=== PATIENT | female | born 1945 | race Caucasian/White ===

== ENCOUNTER → 2016-11-02 | Outpatient (CLI) | payer MEDICARE, BC ==
[~2016-11-02] MED LIST: ASPI81TA45 PO; ATEN-100 PO; CALTTAB PO; COEN1CAP4 PO; ETOD200 PO; META48.53 PO; PROT40TA PO; TAB-TAB PO; TURM450C PO; VITA-83 PO; VITATAB11 PO; [UNRECOGNIZED DRUG - CODE] PO
[2016-11-02 09:31] LABS: HEMATOCRIT 36.4 % (35.0-46.0); MEAN CELL VOLUME 85.2 FL (80.0-100.0); MEAN CORPUSCULAR HGB CONC 32.9 % (32.0-36.0); PLATELET COUNT 271 TH/MM3 (150-450); RED BLOOD COUNT 4.28 MIL/MM3 (4.00-5.30); RED CELL DISTRIBUTION WIDTH 13.3 % (11.6-17.2); REVIEW FLAG FINAL; WHITE BLOOD COUNT 4.9 TH/MM3 (4.0-11.0)
[2016-11-02 10:20] LABS: ALKALINE PHOSPHATASE 86 U/L (45-117); ALT (GPT) 30 U/L (10-53); ANION GAP 4 MEQ/L (5-15); AST (GOT) 50 U/L (15-37); BICARBONATE 30.4 MEQ/L (21.0-32.0); BLOOD UREA NITROGEN 9 MG/DL (7-18); CHLORIDE 108 MEQ/L (98-107); GLOMERULAR FILTRATION RATE 71 ML/MIN (>89); GLUCOSE,FASTING 84 MG/DL (74-99); HDL CHOLESTEROL 37.9 MG/DL (40.0-60.0); LDL CHOLESTEROL 99 MG/DL (0-99); POTASSIUM 4.1 MEQ/L (3.5-5.1); SODIUM (NA) 142 MEQ/L (136-145); TOTAL BILIRUBIN ADULT 0.3 MG/DL (0.2-1.0)
== END ==
LOC: PLAB 07:37
PROVIDERS: ATTEND Internal Medicine Interventional Cardiology
DX: R00.2 Palpitations (principal); I47.1 Supraventricular tachycardia; E78.00 Pure hypercholesterolemia, unspecified
CPT/HCPCS: 36415; 80053; 80061; 85027

== ENCOUNTER → 2017-07-01 | Outpatient (CLI) | payer MEDICARE, BC ==
[2017-07-01 10:01] LABS: HEMATOCRIT 37.8 % (35.0-46.0); MEAN CELL VOLUME 86.3 FL (80.0-100.0); MEAN CORPUSCULAR HEMOGLOBIN 28.2 PG (27.0-34.0); MEAN CORPUSCULAR HGB CONC 32.7 % (32.0-36.0); PLATELET COUNT 281 TH/MM3 (150-450); RED BLOOD COUNT 4.38 MIL/MM3 (4.00-5.30); RED CELL DISTRIBUTION WIDTH 13.6 % (11.6-17.2); REVIEW FLAG FINAL; WHITE BLOOD COUNT 4.9 TH/MM3 (4.0-11.0)
[2017-07-01 10:23] LABS: ANION GAP 6 MEQ/L (5-15); AST (GOT) 60 U/L (15-37); BICARBONATE 27.6 MEQ/L (21.0-32.0); BLOOD UREA NITROGEN 10 MG/DL (7-18); CHLORIDE 106 MEQ/L (98-107); GLOMERULAR FILTRATION RATE 79 ML/MIN (>89); POTASSIUM 4.8 MEQ/L (3.5-5.1); SODIUM (NA) 140 MEQ/L (136-145)
[2017-07-01 10:25] LABS: ALT (GPT) 40 U/L (10-53)
[2017-07-01 10:34] LABS: ALKALINE PHOSPHATASE 104 U/L (45-117); TOTAL BILIRUBIN ADULT 0.3 MG/DL (0.2-1.0)
== END ==
LOC: PLAB 07:43
PROVIDERS: ATTEND Internal Medicine Interventional Cardiology
DX: R00.2 Palpitations (principal); I47.1 Supraventricular tachycardia; R53.81 Other malaise
CPT/HCPCS: 36415; 80053; 84443; 85027

== ENCOUNTER 2017-07-14 03:04 | Emergency (ER) | payer MEDICARE, BC ==
[~2017-07-14] VITALS: Ht 165.1 cm; Wt 66.0 kg
[2017-07-14 03:20] VITALS: BP 130/70; PULSE 95; RESP 14; RESP 16; TEMP 97.9; O2SAT 100
[2017-07-14] MEDS ORDERED: SODIUM CHLORIDE 0.9% FLUSH 10 ML FLUSH IVF PRN (03:30)
[2017-07-14 03:50] LABS: AUTOMATED NEUTROPHIL # 5.1 TH/MM3 (1.8-7.7); BASOPHIL % 0.4 % (0.0-2.0); HEMATOCRIT 38.1 % (35.0-46.0); HEMOGLOBIN 12.7 GM/DL (11.6-15.3); LYMPH % 16.4 % (9.0-44.0); MEAN CELL VOLUME 85.2 FL (80.0-100.0); MEAN CORPUSCULAR HEMOGLOBIN 28.4 PG (27.0-34.0); MEAN CORPUSCULAR HGB CONC 33.3 % (32.0-36.0); MEAN PLATELET VOLUME 7.7 FL (7.0-11.0); MONO % 1.5 % (0.0-8.0); MONOCYTE # 0.1 TH/MM3 (0-0.9); NEUT % 81.7 % (16.0-70.0); PLATELET COUNT 358 TH/MM3 (150-450); RED BLOOD COUNT 4.47 MIL/MM3 (4.00-5.30); RED CELL DISTRIBUTION WIDTH 13.1 % (11.6-17.2); WHITE BLOOD COUNT 6.2 TH/MM3 (4.0-11.0)
[2017-07-14 04:00] LABS: CHLORIDE 100 MEQ/L (98-107); SODIUM (NA) 134 MEQ/L (136-145)
[2017-07-14 04:03] LABS: ALBUMIN 3.5 GM/DL (3.4-5.0); CALCIUM 8.7 MG/DL (8.5-10.1)
[2017-07-14 04:04] LABS: BICARBONATE 24.9 MEQ/L (21.0-32.0); BLOOD UREA NITROGEN 13 MG/DL (7-18); GLUCOSE,RANDOM 173 MG/DL (74-106); MAGNESIUM 1.8 MG/DL (1.5-2.5)
[2017-07-14 04:06] LABS: INTERNATIONAL NORMALIZED RATIO 0.9 RATIO; PROTHROMBIN TIME - PATIENT 10.2 SEC (9.8-11.6)
[2017-07-14 04:07] LABS: ALT (GPT) 68 U/L (10-53); AST (GOT) 100 U/L (15-37); CREATININE 0.84 MG/DL (0.50-1.00); GLOMERULAR FILTRATION RATE 67 ML/MIN (>89)
[2017-07-14 04:08] LABS: TOTAL BILIRUBIN ADULT 0.3 MG/DL (0.2-1.0); TOTAL PROTEIN 6.6 GM/DL (6.4-8.2)
[2017-07-14 04:09] LABS: ALKALINE PHOSPHATASE 100 U/L (45-117)
[2017-07-14 04:12] LABS: TROPONIN I 0.02 NG/ML (0.02-0.05)
[2017-07-14] MEDS ORDERED: ATEN25TA PO (04:31)
[2017-07-14] MEDS ORDERED: ETOD400T PO (04:31)
[2017-07-14] MEDS ORDERED: PANT40TA3 PO (04:31)
[2017-07-14] MEDS ORDERED: ASPI81CH37 CHEW (04:31)
[2017-07-14] MEDS ORDERED: TURM500C3 PO (04:31)
[2017-07-14] MEDS ORDERED: META48.53 PO (04:31)
[2017-07-14] MEDS ORDERED: OMEGCAP PO (04:31)
[2017-07-14] MEDS ORDERED: COEN1CAP PO (04:31)
[2017-07-14] MEDS ORDERED: MULTTAB67 PO (04:31)
[2017-07-14] MEDS ORDERED: VITA500T83 PO (04:31)
[2017-07-14] MEDS ORDERED: VITATAB11 PO (04:31)
[2017-07-14] MEDS ORDERED: CALTCHW5 PO (04:31)
--- NOTE | 2017-07-14 04:37 | PD ---
HPI Chief Complaint: Cardiac Complaint Time Seen by Provider: 03:21 Travel History International Travel<30 days: No Contact w/Intl Traveler<30days: No Traveled to known affect area: No History of Present Illness HPI 71-year-old female with history of SVT, here for evaluation of palpitations and rapid heart rate. The patient reports that she believes that caffeine was the trigger for this episode this evening. She states that has been going on for 5 hours and she has tried vagal maneuvers such as ice to her neck without improvement. She did have some chest tightness a few hours ago, however does not have any tenderness currently. She is followed by railroad maintenance clerk Dr. Ga. Upon arrival to the emergency department to radial pulse appears to be in the normal rate. She was placed on the monitor and her rate was in the 90s. She was asymptomatic at this time. She denies fevers, chills, cough, or recent illness. PFSH Past Medical History Arthritis: Yes Heart Rhythm Problems: Yes (SVT) Cancer: Yes (SKIN) Cardiovascular Problems: Yes (HX SVT) Diabetes: No Diminished Hearing: No Endocrine: No GERD: Yes Genitourinary: No Hepatitis: No Hiatal Hernia: No Hypertension: No Immune Disorder: No Medical other: Yes (FOLICULAR LYMPHOMA) Musculoskeletal: Yes (ARTHRITIS, OSTEOPENIA) Neurologic: No Psychiatric: No Reproductive: Yes (LICHEN SCLEROSIS (VAGINAL THICKENING)) Respiratory: No Thyroid Disease: No Tetanus Vaccination: < 5 Years Influenza Vaccination: Yes ?: Not : 2 Para: 2 Past Surgical History AICD: No Eye Surgery: Yes (CATARACT R EYE 2012) Gynecologic Surgery: Yes (HYSTERECTOMY) Hysterectomy: Yes Joint Replacement: No Oral Surgery: Yes (TONSILLECTOMY) Pacemaker: No Tonsillectomy: Yes Other Surgery: Yes (R BREAST LUMPECTOMY) Social History Alcohol Use: Yes (WINE OCC) Tobacco Use: No Substance Use: No Allergies-Medications (Allergen,Severity, Reaction): Coded Allergies: latex (Unverified Allergy, Mild, RASH, 05/04/17) 05/04/16 DENIES ALLERGY (REACTS TO BANDAIDS) Reported Meds & Prescriptions Reported Meds & Active Scripts Active Reported Metamucil Original Texture (Psyllium Hydrophilic Mucilloid) 3.4 Gram/7 Gram Pow 1 Scoop PO DAILY 1 rounded TEASPOON in 8 oz of liquid at the first sign of irregularity. [place]-3 Fish Oil/Vitamin (Fish Oil-Cholecalciferol) 1,000-1,000 Mg Cap 1 Cap PO DAILY Multiple Vitamin 1 Tab 1 Tab PO DAILY Etodolac 400 Mg Tab 400 Mg PO BID Take with food. Co Q-10 (Coenzyme Q10 (Ubidecarenone)) 100 Mg Cap 100 Mg PO DAILY Caltrate 600+D Chew (Calcium Carbonate-Vitamin D Chew) 600-400 Mg-Unit Chew 1 Tab PO BID Vitamin C ER (Ascorbic Acid) 500 Mg Fuad 500 Mg PO BID Vitamin B Complex (B-Complex Vitamins) 1 Tab 1 Tab PO DAILY Atenolol 25 Mg Tab 25 Mg PO DAILY PRN Pantoprazole (Pantoprazole Sodium) 40 Mg Tab 40 Mg PO DAILY Turmeric (Turmeric (Curcuma Longa)) 450 Mg-50 Mg Cap 1 Can PO DAILY Aspirin Low Dose (Aspirin) 81 Mg Chew 81 Mg CHEW DAILY Review of Systems Except as stated in HPI: all other systems reviewed are Neg Physical Exam Narrative GENERAL: Well-developed, well-nourished, comfortable, no apparent distress. SKIN: Focused skin assessment warm/dry. HEAD: Atraumatic. Normocephalic. EYES: Pupils equal and round. No scleral icterus. No injection or drainage. ENT: Mucous membranes pink and moist. NECK: Trachea midline. No JVD. CARDIOVASCULAR: Regular rate and rhythm. RESPIRATORY: No accessory muscle use. Clear to auscultation. Breath sounds equal bilaterally. GASTROINTESTINAL: Abdomen soft, non-tender, nondistended. MUSCULOSKELETAL: No obvious deformities. No clubbing. No cyanosis. No edema. NEUROLOGICAL: Awake and alert. No obvious cranial nerve deficits. Motor grossly within normal limits. Normal speech. PSYCHIATRIC: Appropriate mood and affect; insight and judgment normal. Data Data Last Documented VS Vital Signs Date Time Temp Pulse Resp B/P (MAP) Pulse Ox O2 Delivery O2 Flow Rate FiO2 07/14/17 03:20 16 100 Room Air 07/14/17 03:20 97.9 95 130/70 (90) Orders Orders Electrocardiogram (07/14/17 03:22) Ckmb (Isoenzyme) Profile (07/14/17 03:22) Complete Blood Count With Diff (07/14/17 03:22) Comprehensive Metabolic Panel (07/14/17 03:22) Magnesium (Mg) (07/14/17 03:22) Prothrombin Time / Inr (Pt) (07/14/17 03:22) Act Partial Throm Time (Ptt) (07/14/17 03:22) Troponin I (07/14/17 03:22) Ecg Monitoring (07/14/17 03:22) Iv Access Insert/Monitor (07/14/17 03:22) Oximetry (07/14/17 03:22) Sodium Chloride 0.9% Flush (Ns Flush) (07/14/17 03:30) CKMB (07/14/17 03:25) CKMB% (07/14/17 03:25) Labs Laboratory Tests Test 07/14/17 03:25 White Blood Count 6.2 TH/MM3 Red Blood Count 4.47 MIL/MM3 Hemoglobin 12.7 GM/DL Hematocrit 38.1 % Mean Corpuscular Volume 85.2 FL Mean Corpuscular Hemoglobin 28.4 PG Mean Corpuscular Hemoglobin Concent 33.3 % Red Cell Distribution Width 13.1 % Platelet Count 358 TH/MM3 Mean Platelet Volume 7.7 FL Neutrophils (%) (Auto) 81.7 % Lymphocytes (%) (Auto) 16.4 % Monocytes (%) (Auto) 1.5 % Eosinophils (%) (Auto) 0.0 % Basophils (%) (Auto) 0.4 % Neutrophils # (Auto) 5.1 TH/MM3 Lymphocytes # (Auto) 1.0 TH/MM3 Monocytes # (Auto) 0.1 TH/MM3 Eosinophils # (Auto) 0.0 TH/MM3 Basophils # (Auto) 0.0 TH/MM3 CBC Comment DIFF FINAL Differential Comment Prothrombin Time 10.2 SEC Prothromb Time International Ratio 0.9 RATIO Activated Partial Thromboplast Time 29.2 SEC Blood Urea Nitrogen 13 MG/DL Creatinine 0.84 MG/DL Random Glucose 173 MG/DL Total Protein 6.6 GM/DL Albumin 3.5 GM/DL Calcium Level 8.7 MG/DL Magnesium Level 1.8 MG/DL Alkaline Phosphatase 100 U/L Aspartate Amino Transf (AST/SGOT) 100 U/L Alanine Aminotransferase (ALT/SGPT) 68 U/L Total Bilirubin 0.3 MG/DL Sodium Level 134 MEQ/L Potassium Level 4.2 MEQ/L Chloride Level 100 MEQ/L Carbon Dioxide Level 24.9 MEQ/L Anion Gap 9 MEQ/L Estimat Glomerular Filtration Rate 67 ML/MIN Total Creatine Kinase 118 U/L Creatine Kinase MB 2.6 NG/ML Troponin I 0.02 NG/ML MDM Medical Decision Making Medical Screen Exam Complete: Yes Emergency Medical Condition: Yes Medical Record Reviewed: Yes Interpretation(s) EKG: Sinus, rate 94, occasional supraventricular premature complexes, nonspecific T wave abnormality, no ST segment abnormality, essentially unchanged from prior. Differential Diagnosis SVT, sinus tachycardia, ACS, metabolic abnormality/electrolyte abnormality Narrative Course Initial vital signs show heart rate 95, blood pressure 130/70, pulse ox 100% on room air, oral temp of 97.9F. CBC is essentially unremarkable. CMP is remarkable for AST 100, ALT 68. Patient reports history of slightly elevated LFTs. Random glucose is 173. Troponin is 0.02. Patient was observed in the emergency department for over an hour and had no tachycardic events on the monitor. She remained in sinus rhythm with a normal rate here. She states she is feeling well and would like to be discharged home. She has an appointment with her railroad maintenance clerk Dr. Ga on Wednesday. I told her to keep this appointment. She likely had an episode of SVT. She is stable for discharge home with further workup as an outpatient. She was informed on when to return to the emergency department. She verbalizes understanding and agreement with plan. Diagnosis Primary Impression: Palpitations Referrals: Diego Cook MD 1 week Additional Instructions: Follow-up with your railroad maintenance clerk on Wednesday as scheduled. Return to the emergency department for worsening symptoms or any other concerns. Disposition: DISCHARGE HOME Condition: Stable Donny Brewster MD Jul 14, 2017 04:37
[2017-07-14 04:49] VITALS: BP 116/67
--- NOTE | 2017-07-14 21:19 | EKG ---
Date Performed: 07/14/2017 Time Performed: 03:22:27 PTAGE: 71 years EKG: Sinus rhythm WITH OCCASIONAL SUPRAVENTRICULAR PREMATURE COMPLEXES POSSIBLE LEFT ATRIAL ENLARGEMENT POSSIBLE RIGHT VENTRICULAR CONDUCTION DELAY NONSPECIFIC T-WAVE ABNORMALITY PREVIOUS TRACING : 05/04/2016 10.28 Compared to prior tracing no significant change DOCTOR: Doug Llamas Interpretating Date/Time 07/14/2017 21:18:37
== END 2017-07-14 04:54 | disposition home or self-care (01) ==
LOC: PHED 03:04
DX: R00.2 Palpitations (principal); R94.31 Abnormal electrocardiogram [ECG] [EKG]; Z79.01 Long term (current) use of anticoagulants
CPT/HCPCS: 80053; 82550; 82552; 83735; 84484; 85025; 85610; 85730; 93005; 99284

== ENCOUNTER → 2017-11-12 | Outpatient (CLI) | payer MEDICARE, BC ==
[~2017-11-12] MED LIST changes: +ASPI81CH6 CHEW; -ASPI81TA45 PO; -ATEN-100 PO; +ATEN25TA PO; +CALTCHW5 PO; -CALTTAB PO; +CARD180C5 PO; +COEN1CAP PO; -COEN1CAP4 PO; -ETOD200 PO; +ETOD400T PO; +LECI12002 PO; +LORA24TA PO; +MULTTAB67 PO; +OMEGCAP PO; +PANT40TA3 PO; -PROT40TA PO; -TAB-TAB PO; -TURM450C PO; +TURM500C3 PO; -VITA-83 PO; +VITA500T83 PO; -[UNRECOGNIZED DRUG - CODE] PO; +curamin P-ARTICULR
[2017-11-12 13:21] LABS: HEMATOCRIT 37.4 % (35.0-46.0); HEMOGLOBIN 12.5 GM/DL (11.6-15.3); MEAN CELL VOLUME 85.5 FL (80.0-100.0); MEAN CORPUSCULAR HEMOGLOBIN 28.5 PG (27.0-34.0); MEAN CORPUSCULAR HGB CONC 33.3 % (32.0-36.0); MEAN PLATELET VOLUME 7.7 FL (7.0-11.0); PLATELET COUNT 301 TH/MM3 (150-450); RED BLOOD COUNT 4.38 MIL/MM3 (4.00-5.30); RED CELL DISTRIBUTION WIDTH 13.5 % (11.6-17.2); WHITE BLOOD COUNT 4.9 TH/MM3 (4.0-11.0)
[2017-11-12 13:24] LABS: CALCIUM 8.7 MG/DL (8.5-10.1); CREATININE 0.81 MG/DL (0.50-1.00)
== END ==
LOC: PLAB 08:13
PROVIDERS: ATTEND Internal Medicine Interventional Cardiology
DX: I48.0 Paroxysmal atrial fibrillation (principal); Z79.899 Other long term (current) drug therapy; Z01.810 Encounter for preprocedural cardiovascular examination
CPT/HCPCS: 36415; 80048; 85027

== ENCOUNTER 2017-11-15 05:45 | Day surgery (SDC) | payer MEDICARE, BC ==
[~2017-11-15 05:45] MED LIST changes: -CARD180C5 PO; -LECI12002 PO; -LORA24TA PO; -curamin P-ARTICULR
[2017-11-15] MEDS ORDERED: SODIUM CHLOR 0.9% 1000 ML INJ 1,000 ML IV SCH (06:16)
[2017-11-15] MEDS ORDERED: curamin P-ARTICULR (06:26)
[2017-11-15] MEDS ORDERED: LECI12002 PO (06:26)
[2017-11-15] MEDS ORDERED: LORA24TA PO (06:26)
[2017-11-15] MEDS ORDERED: CARD180C5 PO (06:26)
[2017-11-15] MEDS ORDERED: ceFAZolin 2 GM PREMIX 50 ML IV SCH ×2 (06:30)
[2017-11-15] MEDS ORDERED: CHLORHEXIDINE GLUCONATE 2 % 1 PACK (2 CLOTHS) TOPICAL SCH (06:30)
[2017-11-15] MEDS ORDERED: CHLORHEXIDINE GLUCONATE 2 % 1 PACK (2 CLOTHS) TOP SCH (06:30)
[2017-11-15] MEDS ORDERED: MUPIROCIN 2% OINT 1 APPLIC/GM SYR NASAL SCH ×2 (06:30)
[2017-11-15] MEDS ORDERED: POVIDONE IODINE 5% (ANTISEPSIS KIT) 4 APPLICATIONS EACH NARE SCH ×2 (06:30)
[2017-11-15] MEDS ORDERED: NS 1000 ML IV SCH (06:30)
[2017-11-15] MEDS ORDERED: MIDAZOLAM HCL 5 MG/5 ML VIAL ONE (06:33)
--- NOTE | 2017-11-15 16:55 | MP ---
cc: ORLY COOK M.D. DATE OF SURGERY: 11/15/2017. PREOPERATIVE DIAGNOSIS: Paroxysmal supraventricular tachycardia, rule out paroxysmal atrial fibrillation. POSTOPERATIVE DIAGNOSIS: Paroxysmal supraventricular tachycardia, rule out paroxysmal atrial fibrillation. OPERATIVE PROCEDURE PERFORMED: Implantation of a loop recorder. SURGEON: Orly Cook MD. ESTIMATED BLOOD LOSS: None. ANESTHESIA: Intravenous Versed and fentanyl for awake sedation with 1% Xylocaine local. COMPLICATIONS None PROCEDURE TECHNIQUE: The patient was brought to the diagnostic outpatient unit and following informed consent, the area of the left sternum was prepped and draped in the usual sterile manner. Following 15 mL of 1% Xylocaine for local anesthesia over the fourth left intercostal space, a annabella was made and with the use of the implantation device, a loop recorder was inserted in the usual fashion. Following this, the incision was closed using Steri-Strips and sterile pressure dressing. The patient tolerated procedure well. There were no immediate complications. She will be transferred home when ambulatory and stable. DEVICE INFORMATION: A [employer] DM [id number], serial number [id number]. Testing of the device acutely: R-wave amplitude 1.03 mV. Normal function. MD BRIGITTE Aleman/JULIETTE /7:39 AM /4:48 PM
== END 2017-11-15 09:17 | disposition home or self-care (01) ==
LOC: HDOC 05:45 → HDIC 05:45 → HDOC 09:17
PROVIDERS: ATTEND Internal Medicine Interventional Cardiology
DX: I47.1 Supraventricular tachycardia (principal); I70.0 Atherosclerosis of aorta; K21.9 Gastro-esophageal reflux disease without esophagitis; Z85.72 Personal history of non-Hodgkin lymphomas
CPT/HCPCS: 33282; C1764; J2250; J3010

== ENCOUNTER 2017-11-21 18:59 | Emergency (ER) | payer MEDICARE, BC ==
[~2017-11-21] VITALS: Ht 167.6 cm; Wt 65.0 kg
[~2017-11-21 18:59] MED LIST changes: +CARD180C5 PO; +LECI12002 PO; +LORA24TA PO; -TURM500C3 PO; +curamin P-ARTICULR
[2017-11-21 19:08] VITALS: BP 130/63; PULSE 175; RESP 20; TEMP 97.5; O2SAT 100
[2017-11-21] MEDS ORDERED: ADENOSINE IV SOLN 3 MG/ML 2 ML VIAL ONE (19:28)
[2017-11-21 19:30] VITALS: BP 130/77; PULSE 116; RESP 18; O2SAT 100
[2017-11-21 19:59] VITALS: BP 130/70; PULSE 100; RESP 16; O2SAT 99
--- NOTE | 2017-11-21 20:00 | PD ---
HPI Chief Complaint: Cardiac Complaint Time Seen by Provider: 19:18 Travel History International Travel<30 days: No Contact w/Intl Traveler<30days: No Traveled to known affect area: No History of Present Illness HPI The patient is a 72 year old female who presents to the [facility] emergency department with a history of a sensation of palpitations with her heart racing since 2:30 PM. The patient denies having any chest pain, chest pressure, or shortness of breath. She reports having a generalized sensation of her body "throbbing". The patient reports having a prior history of SVT. She reports that the episodes have been more frequent over the last several months since June 2017. She is followed by Dr. Cook for her care. She reports that previously she was on atenolol as needed, however in September she began to take it daily. She also reports that a month ago she had diltiazem added to her regimen which she takes at night. She reports that week ago she did have an internal loop recording device placed. She reports that prior to arrival she tried vagal maneuvers without success to abort the SVT. On arrival the patient is noted to be in SVT with a heart rate of 173. Otherwise on review of systems, the patient denies having any known recent fevers, cough, congestion, neck pain, abdominal pain, vomiting, diarrhea, urinary symptoms, or neurologic symptoms. She denies having any recent weight changes. [facility] Past Medical History Narrative Medical The patient's past medical history is significant for a history of SVT, history of abnormal liver function test, arthritis, follicular lymphoma followed by Dr. Chen, acid reflux, peptic ulcer disease. Arthritis: Yes Heart Rhythm Problems: Yes (SVT) Cancer: Yes (SKIN) Cardiovascular Problems: Yes (SVT) Diabetes: No Diminished Hearing: No Endocrine: No GERD: Yes Genitourinary: No Hepatitis: No Hiatal Hernia: No Hypertension: No Immune Disorder: No Musculoskeletal: Yes (ARTHRITIS, OSTEOPENIA) Neurologic: No Psychiatric: No Reproductive: Yes (LICHEN SCLEROSIS (VAGINAL THICKENING)) Respiratory: No Thyroid Disease: No : 2 Para: 2 Past Surgical History Narrative Surgical The patient's past surgical history is significant for basal cell skin cancer resection, right knee surgery for torn meniscus, tonsillectomy, cataract surgery , hysterectomy, right breast biopsy, biopsy of lymphadenopathy related to follicular lymphoma. AICD: No Eye Surgery: Yes (CATARACT BILAT EYE 2012) Gynecologic Surgery: Yes (HYSTERECTOMY) Hysterectomy: Yes Joint Replacement: No Oral Surgery: Yes (TONSILLECTOMY) Pacemaker: No Tonsillectomy: Yes Other Surgery: Yes (SKIN CANCER REMOVAL MULTIPLT AREAS) Social History Alcohol Use: Yes (WINE OCC) Tobacco Use: No Substance Use: No Allergies-Medications (Allergen,Severity, Reaction): Coded Allergies: latex (Verified Allergy, Mild, RASH, 11/21/17) 05/04/16 DENIES ALLERGY (REACTS TO BANDAIDS) Reported Meds & Prescriptions Reported Meds & Active Scripts Active Reported [curamin] 2 Tab P-ARTICULR DAILY Lecithin (Lecithin, Soy) 1,200 Mg Capsule 1,200 Mg PO DAILY Loratadine-D 24 HR (Loratadine-Pseudoephedrine 24 HR) 10-240 Mg Tab 1 Tab PO DAILY Cardizem CD 24 HR (Diltiazem CD 24 HR) 180 Mg Caper 180 Mg PO DAILY Metamucil Original Texture (Psyllium Hydrophilic Mucilloid) 3.4 Gram/7 Gram Pow 1 Scoop PO DAILY 1 rounded TEASPOON in 8 oz of liquid at the first sign of irregularity. [place]-3 Fish Oil/Vitamin (Fish Oil-Cholecalciferol) 1,000-1,000 Mg Cap 1 Cap PO DAILY Multiple Vitamin 1 Tab 1 Tab PO DAILY Etodolac 400 Mg Tab 400 Mg PO BID Take with food. Co Q-10 (Coenzyme Q10 (Ubidecarenone)) 100 Mg Cap 100 Mg PO DAILY Caltrate 600+D Chew (Calcium Carbonate-Vitamin D Chew) 600-400 Mg-Unit Chew 1 Tab PO BID Vitamin C ER (Ascorbic Acid) 500 Mg Fuad 500 Mg PO BID Vitamin B Complex (B-Complex Vitamins) 1 Tab 1 Tab PO DAILY Atenolol 25 Mg Tab 25 Mg PO DAILY PRN Pantoprazole (Pantoprazole Sodium) 40 Mg Tab 40 Mg PO DAILY Aspirin Low Dose (Aspirin) 81 Mg Chew 81 Mg CHEW DAILY Review of Systems Except as stated in HPI: all other systems reviewed are Neg General / Constitutional: No: Fever Eyes: No: Visual changes HENT: No: Headaches Cardiovascular: No: Chest Pain or Discomfort Respiratory: No: Shortness of Breath Gastrointestinal: No: Abdominal Pain Genitourinary: No: Dysuria Musculoskeletal: No: Pain Skin: No Rash Neurologic: No: Weakness Psychiatric: No: Depression Endocrine: No: Polydipsia Hematologic/Lymphatic: No: Easy Bruising Physical Exam Narrative General: The patient is a well-developed well-nourished female in no acute distress. Head and Neck exam: Head is normocephalic atraumatic. Eyes: EOMI, pupils are equal round and reactive to light. Nose: Midline septum with pink mucous membranes Mouth: Dentition unremarkable. Moist mucus membranes. Posterior oropharynx is not erythematous. No tonsillar hypertrophy. Uvula midline. Airway patent. Neck: No palpable lymphadenopathy. No nuchal rigidity. No thyromegaly. Cardiovascular: Tachycardic regular sounding rhythm noted to be in the 170s when placed on telemetry without murmurs, gallops, or rubs. No pulse deficit to the extremities on simultaneous auscultation and palpation of her radial artery. Lungs: Clear to auscultation bilaterally. No wheezes, rhonchi, or rales. Abdomen: Soft, without tenderness to palpation in all 4 quadrants of the abdomen. No guarding, rebound, or rigidity. Normal bowel sounds are audible. No tenderness on palpation of McBurney's point Extremities: No clubbing, cyanosis, or edema. 2+ pulses in all 4 extremities. No calf tenderness on palpation peer Back: No costovertebral angle tenderness to palpation. Neurologic Exam: Grossly nonfocal. Skin Exam: No rash noted. Intact skin that is warm and dry. Data Data Last Documented VS Vital Signs Date Time Temp Pulse Resp B/P (MAP) Pulse Ox O2 Delivery O2 Flow Rate FiO2 11/21/17 19:59 100 16 130/70 (90) 99 Nasal Cannula 2.00 11/21/17 19:08 97.5 Orders Orders Electrocardiogram (11/21/17 19:16) Ecg Monitoring (11/21/17 19:16) Oxygen Administration (11/21/17 19:16) Oximetry (11/21/17 19:16) Electrocardiogram (11/21/17 19:24) Complete Blood Count With Diff (11/21/17 19:24) Comprehensive Metabolic Panel (11/21/17 19:24) Creatine Kinase (Cpk) (11/21/17 19:24) Ckmb (Isoenzyme) Profile (11/21/17 19:24) Troponin I (11/21/17 19:24) B-Type Natriuretic Peptide (11/21/17:24) Prothrombin Time / Inr (Pt) (11/21/17:24) Act Partial Throm Time (Ptt) (11/21/17:24) Lipase (11/21/17:24) Magnesium (Mg) (11/21/17:24) Thyroid Stimulating Hormone (11/21/17:24) Chest, Single Ap (11/21/17:24) Iv Access Insert/Monitor (11/21/17:24) Adenosine Inj (Adenocard Inj) (11/21/17 19:28) CKMB (11/21/17:35) CKMB% (11/21/17:35) Labs Laboratory Tests Test 11/21/17:35 White Blood Count 9.0 TH/MM3 Red Blood Count 4.67 MIL/MM3 Hemoglobin 13.4 GM/DL Hematocrit 39.8 % Mean Corpuscular Volume 85.2 FL Mean Corpuscular Hemoglobin 28.6 PG Mean Corpuscular Hemoglobin Concent 33.6 % Red Cell Distribution Width 13.7 % Platelet Count 347 TH/MM3 Mean Platelet Volume 7.7 FL Neutrophils (%) (Auto) 61.6 % Lymphocytes (%) (Auto) 29.2 % Monocytes (%) (Auto) 7.1 % Eosinophils (%) (Auto) 1.5 % Basophils (%) (Auto) 0.6 % Neutrophils # (Auto) 5.5 TH/MM3 Lymphocytes # (Auto) 2.6 TH/MM3 Monocytes # (Auto) 0.6 TH/MM3 Eosinophils # (Auto) 0.1 TH/MM3 Basophils # (Auto) 0.1 TH/MM3 CBC Comment DIFF FINAL Differential Comment Prothrombin Time 9.8 SEC Prothromb Time International Ratio 1.0 RATIO Activated Partial Thromboplast Time 27.1 SEC Blood Urea Nitrogen 13 MG/DL Creatinine 0.72 MG/DL Random Glucose 97 MG/DL Total Protein 6.2 GM/DL Albumin 3.5 GM/DL Calcium Level 8.1 MG/DL Magnesium Level 1.7 MG/DL Alkaline Phosphatase 94 U/L Aspartate Amino Transf (AST/SGOT) 66 U/L Alanine Aminotransferase (ALT/SGPT) 35 U/L Total Bilirubin 0.2 MG/DL Sodium Level 136 MEQ/L Potassium Level 4.3 MEQ/L Chloride Level 105 MEQ/L Carbon Dioxide Level 23.3 MEQ/L Anion Gap 8 MEQ/L Estimat Glomerular Filtration Rate 80 ML/MIN Total Creatine Kinase 127 U/L Creatine Kinase MB 1.7 NG/ML Troponin I LESS THAN 0.02 NG/ML B-Type Natriuretic Peptide 108 PG/ML Lipase 239 U/L Thyroid Stimulating Hormone 3rd Gen 1.710 uIU/ML MDM Medical Decision Making Medical Screen Exam Complete: Yes Emergency Medical Condition: Yes Medical Record Reviewed: Yes Interpretation(s) Last Impressions Chest X-Ray 11/21/171923 Signed Impressions: Service Date/Time: Tuesday, November 21, 2017 19:40 - CONCLUSION: 1. No active disease. Minimal basilar atelectasis. Rajinder Weldon MD Differential Diagnosis SVT, versus paroxysmal atrial fibrillation, versus multifocal atrial tachycardia Narrative Course During the course of the patient's emergency department visit, the patient's history, examination, and differential diagnosis were reviewed with the patient. The patient was placed on a cardiac technologist with oximetry and frequent blood pressure monitoring. The patient had IV access obtained and blood work sent for analysis. The patient had an EKG done on arrival. The patient's EKG shows a heart rate of 173, supraventricular tachycardia noted, QRS duration is 63 ms, no acute ST segment elevation is noted. T waves are inverted in V1, V2, V3. A vagal maneuver was attempted by the patient where she did bear down under my guidance on telemetry, however this was not successful in aborting the SVT. The patient was initially provided adenosine 6 mg IV rapid push followed by a flush. The patient converted to a sinus rhythm. A second EKG was done that shows sinus tachycardia rate of 101, QRS duration 79 ms, QTC 397 ms with no acute ST segment elevation, T waves are inverted in V1, V2, V3. The patient's laboratory studies were reviewed and remarkable for a CBC that is within normal, CMP is remarkable for a GFR of 80, calcium 8.1, AST 66, cardiac enzymes within normal limits, BNP 108, total protein 6.2, lipase 239, TSH 1.71, PT 9.8, PTT 27.1 Radiology studies were reviewed and remarkable for a chest x-ray that shows no acute abnormality. The patient's geologic technician, Dr. Cook called the emergency department regarding this patient's case. We did discuss the patient's episode of SVT which converted with adenosine and the patient's rhythm strip was able to be transmitted to him for evaluation. He plans to be in contact with the patient regarding possibly adding another medication to her regimen for better control. At this time he felt that the patient was stable for discharge. He reports that she did have a stress test done approximately a month ago that was unremarkable. The patient has maintained herself in sinus rhythm. The patient will be discharged home to follow-up with Dr. Cook's office tomorrow. The patient is resting comfortably and feels better, is alert and in no distress. The patient's results and examination findings were discussed with the patient. The repeat examination is unremarkable and benign. The history, exam, diagnostic testing, and current condition do not suggest any significant pathology to warrant further testing, continued ED treatment, admission, or surgical evaluation at this point. The vital signs have been stable. The patient does not have uncontrollable pain, intractable vomiting, or other significant symptoms. The patient's condition is stable and appropriate for discharge. The patient will pursue further outpatient evaluation with a primary care physician or other designated or consulting physician as indicated in the discharge instructions. The patient expressed understanding and was agreeable with this plan. Physician Communication Physician Communication I spoke to Dr. Cook at approximately 8 PM regarding this patient's case. He requested a copy of the rhythm strip during the conversion with adenosine. We were able to obtain this for him. Diagnosis Primary Impression: SVT (supraventricular tachycardia) Referrals: Diego Cook MD 1 day Patient Instructions: General Instructions, Supraventricular Tachycardia (ED) Med/Other Pt SpecificInfo: No Change to Meds Disposition: 01 DISCHARGE HOME Condition: Stable Xochitl Kennedy MD Nov 21, 2017 20:00
[2017-11-21 20:02] LABS: AUTOMATED NEUTROPHIL # 5.5 TH/MM3 (1.8-7.7); BASOPHIL # 0.1 TH/MM3 (0-0.2); BASOPHIL % 0.6 % (0.0-2.0); EOSINOPHIL # 0.1 TH/MM3 (0-0.4); EOSINOPHIL % 1.5 % (0.0-4.0); HEMATOCRIT 39.8 % (35.0-46.0); HEMOGLOBIN 13.4 GM/DL (11.6-15.3); LYMPH % 29.2 % (9.0-44.0); LYMPHOCYTE # 2.6 TH/MM3 (1.0-4.8); MEAN CELL VOLUME 85.2 FL (80.0-100.0); MEAN CORPUSCULAR HEMOGLOBIN 28.6 PG (27.0-34.0); MEAN CORPUSCULAR HGB CONC 33.6 % (32.0-36.0); MEAN PLATELET VOLUME 7.7 FL (7.0-11.0); MONO % 7.1 % (0.0-8.0); MONOCYTE # 0.6 TH/MM3 (0-0.9); NEUT % 61.6 % (16.0-70.0); PLATELET COUNT 347 TH/MM3 (150-450); RED BLOOD COUNT 4.67 MIL/MM3 (4.00-5.30); RED CELL DISTRIBUTION WIDTH 13.7 % (11.6-17.2)
[2017-11-21 20:13] LABS: PROTHROMBIN TIME - PATIENT 9.8 SEC (9.8-11.6)
--- NOTE | 2017-11-21 20:25 | RADRPT ---
EXAM DATE/TIME: 11/21/2017 19:40 [place] COMPARISON: No previous studies available for comparison. INDICATIONS : Rapid heart beat. Light headed. SVT episode today. MEDICAL HISTORY : SVT. SURGICAL HISTORY : Loop recorder. Right lumpectomy. ENCOUNTER: Initial ACUITY: 1 day PAIN SCORE: 0/10 LOCATION: Bilateral chest FINDINGS: A single view of the chest demonstrates the lungs to be symmetrically aerated without evidence of mas s, infiltrate or effusion. The cardiomediastinal contours are unremarkable. Osseous structures are intact. Loop recorder overlies lower left chest. CONCLUSION: 1. No active disease. Minimal basilar atelectasis. Rajinder Weldon MD on November 21, 2017 at 20:21 Board Certified Radiologist. This report was verified electronically.
[2017-11-21 20:28] LABS: ALBUMIN 3.5 GM/DL (3.4-5.0); AST (GOT) 66 U/L (15-37); BICARBONATE 23.3 MEQ/L (21.0-32.0); BLOOD UREA NITROGEN 13 MG/DL (7-18); CALCIUM 8.1 MG/DL (8.5-10.1); CHLORIDE 105 MEQ/L (98-107); CREATININE 0.72 MG/DL (0.50-1.00); GLOMERULAR FILTRATION RATE 80 ML/MIN (>89); GLUCOSE,RANDOM 97 MG/DL (74-106); MAGNESIUM 1.7 MG/DL (1.5-2.5); SODIUM (NA) 136 MEQ/L (136-145)
[2017-11-21 20:47] LABS: ALKALINE PHOSPHATASE 94 U/L (45-117); ALT (GPT) 35 U/L (10-53); TOTAL BILIRUBIN ADULT 0.2 MG/DL (0.2-1.0); TOTAL PROTEIN 6.2 GM/DL (6.4-8.2); TROPONIN I LESS THAN 0.02 NG/ML (0.02-0.05)
[2017-11-21 22:43] VITALS: BP 128/70
--- NOTE | 2017-11-25 13:55 | EKG ---
Date Performed: 11/21/2017 Time Performed: 19:22:08 PTAGE: 72 years EKG: SUPRAVENTRICULAR TACHYCARDIA NONSPECIFIC ST & T-WAVE ABNORMALITY ABNORMAL RHYTHM ECG PREVIOUS TRACING : 07/14/2017 03.22 Compared to prior tracing, SVT has replaced Sinus rhythm . DOCTOR: Loc Oconnell Interpretating Date/Time 11/25/2017 13:53:40
--- NOTE | 2017-11-25 13:55 | EKG ---
Date Performed: 11/21/2017 Time Performed: 19:35:51 PTAGE: 72 years EKG: SINUS TACHYCARDIA POSSIBLE LEFT ATRIAL ENLARGEMENT POSSIBLE RIGHT VENTRICULAR CONDUCTION DE LAY MODERATE T-WAVE ABNORMALITY, CONSIDER ANTERIOR ISCHEMIA ABNORMAL ECG PREVIOUS TRACING : 11/21/2017 19.22 Compared to prior tracing, Sinus rhythm is now present. DOCTOR: Loc Oconnell Interpretating Date/Time 11/25/2017 13:53:54
== END 2017-11-21 22:44 | disposition home or self-care (01) ==
LOC: NEPC 18:59
DX: I47.1 Supraventricular tachycardia (principal); K21.9 Gastro-esophageal reflux disease without esophagitis
CPT/HCPCS: 71045; 80053; 82550; 82552; 83690; 83735; 83880; 84443; 84484; 85025; 85610; 85730; 93005; 99285; J0153

== ENCOUNTER → 2018-02-23 | Outpatient (CLI) | payer MEDICARE, BC ==
[2018-02-23 10:38] LABS: BICARBONATE 27.8 MEQ/L (21.0-32.0); CALCIUM 8.9 MG/DL (8.5-10.1); CREATININE 0.74 MG/DL (0.50-1.00)
== END ==
LOC: PLAB 07:43
PROVIDERS: ATTEND Internal Medicine Interventional Cardiology
DX: Z79.899 Other long term (current) drug therapy (principal)
CPT/HCPCS: 36415; 80048